=== PATIENT | female | born 1990 | race Caucasian/White ===

== ENCOUNTER 2017-04-10 14:20 | Emergency (ER) | payer OTHER ==
[~2017-04-10] VITALS: Ht 162.6 cm; Wt 69.6 kg
[2017-04-10 14:25] VITALS: Ht 162.6 cm; Wt 69.6 kg
[2017-04-10] MEDS ORDERED: SOD CHLORIDE 0.9% 1,000 ML IV STA (15:44)
[2017-04-10] MEDS ORDERED: METOCLOPRAMIDE 10 MG INJ IV STA (15:44)
[2017-04-10 15:53] LABS: URINE BLOOD (Dip) POC Negative (NEGATIVE)
[2017-04-10] MEDS ORDERED: DIPHENHYDRAMINE 50 MG INJ IV ONE (16:00)
[2017-04-10] MEDS ORDERED: BUTA1CAP38 PO (17:41)
--- NOTE | 2017-04-10 17:45 | ERD ---
ER Documentation Chief Complaint Date/Time DATE: 04/10/17 TIME: 17:41 Chief Complaint "HEADACHE WITH NUMBNESS SINCE EARLIER TODAY" PERRLA NORMAL NEURO HPI This 27-year-old female presents with a headache that began 3 hours ago and got worse. She also had left arm numbness and blurred vision with the headache. She states that she gets headaches about once a month. There is similar but this 1 is worse than usual. She has not tried taking anything for the pain yet. She has no focal neurological weaknesses. ROS All systems reviewed and are negative except as per history of present illness. Medications Home Meds Active Scripts Mzmmhabmyg-Ayxwsgejnxtmv-Rlegqfab* (Fioricet*) 50-300-40 Mg Capsule, 1 CAP PO Q4H Y for HEADACHE, #14 CAP Prov:LEECORNELIUS DO 04/10/17 Allergies Allergies: Coded Allergies: No Known Allergy (Unverified , 04/10/17) PMhx/Soc Medical and Surgical Hx: pt denies Medical Hx, pt denies Surgical Hx Hx Alcohol Use: No Hx Substance Use: No Hx Tobacco Use: No Smoking Status: Never smoker Physical Exam Vitals Vital Signs Date Time Temp Pulse Resp B/P Pulse Ox O2 Delivery O2 Flow Rate FiO2 04/10/17 14:25 97.8 58 18 118/72 100 Physical Exam Const: [] No distress Head: Atraumatic Eyes: Normal Conjunctiva, EOMI, PERRLA ENT: Normal External Ears, Nose and Mouth. Neck: Full range of motion..~ No meningismus. Skin: No petechiae or rashes Back: No midline or flank tenderness Ext: No cyanosis, or edema Neur: Awake and alert and oriented 3, cranial nerves II through XII intact, no focal deficits, no cerebellar deficits, normal gait Psych: Normal Mood and Affect Results 24 hrs Laboratory Tests Test 04/10/17 15:58 Bedside Urine pH (LAB) 8.5 Bedside Urine Protein (LAB) Negative Bedside Urine Glucose (UA) Negative Bedside Urine Ketones (LAB) Negative Bedside Urine Blood Negative Bedside Urine Nitrite (LAB) Negative Bedside Urine Leukocyte Esterase (L Trace Current Medications Medications (Trade) Dose Ordered Sig/Nicole Route PRN Reason Start Time Stop Time Status Last Admin Dose Admin Sodium Chloride (NS) 1,000 ml @ 1,000 mls/hr Q1H STAT IV 04/10/17 15:44 04/10/17 16:43 DC 04/10/17 15:56 Metoclopramide HCl (Reglan) 10 mg ONCE STAT IV 04/10/17 15:44 04/10/17 15:46 DC 04/10/17 15:57 Diphenhydramine HCl (Benadryl) 12.5 mg ONCE ONCE IV 04/10/17 16:00 04/10/17 16:01 DC 04/10/17 15:57 Procedures/MDM Headache with features of complex migraine. Patient was treated with a migraine cocktail of 2.5 mg IV Benadryl, 10 mg of Reglan IV, a liter of IV fluid. Shortly after the patient was given the medications her headache dissipated completely she had no numbness in her left arm and no blurred vision. I have almost no suspicion for CVA. [facility] Departure Diagnosis: Primary Impression: Arm paresthesia, left Additional Impressions: Headache Blurred vision, bilateral Condition: Stable Patient Instructions: Self-Care for Headaches, Blurred Vision Additional Instructions: Llame al doctor KAYLA y salomon iona HAILEE PARA DENTRO DE 2-3 WANG.Dgale a la secretaria que nosotros le instruimos hacer esta hailee.Avise o llame si madison condicin se empeora antes de la hailee. Regresa aqui si peor o no mejor. CORNELIUS HOWARD DO Apr 10, 2017 17:45
[2017-04-10 18:11] VITALS: BP 118/68; PULSE 77; RESP 16; TEMP 98.4
== END 2017-04-10 18:12 | disposition home or self-care (01) ==
LOC: FTE 14:20
DX: R20.2 Paresthesia of skin (principal); H53.8 Other visual disturbances
CPT/HCPCS: 81003; 96374; 96375; 99284; J1200; J2765; J7030